=== PATIENT | female | born 1965 | race Two or more races ===

== ENCOUNTER → 2017-11-17 | Outpatient (CLI) | payer OTHER ==
[~2017-11-17] VITALS: Ht 152.4 cm; Wt 68.0 kg
[~2017-11-17] MED LIST: AMBIEN10 MG PO; AMITRIPTYLINE H10 MG; ATARAX25 MG PO; CIPRO500 MG PO; LUNESTA2 MG PO; LUNESTA3 MG PO; ULTRACET PO; URETRON DS1 TAB PO; URIN D.S. TABLE1 TAB PO
== END | disposition home or self-care (01) ==
LOC: PPHC 14:56
DX: J09.X2 Influenza due to identified novel influenza A virus with other respiratory manifestations (principal)

== ENCOUNTER 2020-05-09 12:14 | Outpatient (CLI) | payer OTHER | END 2020-05-09 12:52 | disposition home or self-care (01) | LOC: NUCLEAR 12:14 | PROVIDERS: ATTEND Obstetrics & Gynecology | DX: M81.0 Age-related osteoporosis without current pathological fracture (principal) ==

== ENCOUNTER 2020-05-09 16:12 | Outpatient (CLI) | payer OTHER | END 2020-05-09 16:18 | disposition home or self-care (01) | LOC: MAMO-SONO 16:12 | PROVIDERS: ATTEND Obstetrics & Gynecology | DX: Z12.31 Encounter for screening mammogram for malignant neoplasm of breast (principal); N60.11 Diffuse cystic mastopathy of right breast; N60.12 Diffuse cystic mastopathy of left breast ==

== ENCOUNTER 2021-06-19 08:37 | Outpatient (CLI) | payer OTHER | END 2021-06-19 08:52 | disposition home or self-care (01) | LOC: MAMO-SONO 08:37 | PROVIDERS: ATTEND Obstetrics & Gynecology | DX: R10.2 Pelvic and perineal pain (principal); Z01.411 Encounter for gynecological examination (general) (routine) with abnormal findings; N64.89 Other specified disorders of breast; Z12.31 Encounter for screening mammogram for malignant neoplasm of breast; N64.4 Mastodynia ==

== ENCOUNTER 2021-10-15 08:17 | Outpatient (CLI) | payer OTHER | END 2021-10-15 08:30 | disposition home or self-care (01) | LOC: SONOGRAMA 08:17 | PROVIDERS: ATTEND Internal Medicine Endocrinology, Diabetes & Metabolism | DX: E04.1 Nontoxic single thyroid nodule (principal) ==

== ENCOUNTER 2022-03-17 08:20 | Outpatient (CLI) | payer OTHER | END 2022-03-17 08:26 | disposition home or self-care (01) | LOC: SONOGRAMA 08:20 | DX: R10.11 Right upper quadrant pain (principal) ==

== ENCOUNTER 2022-03-31 09:21 | Outpatient (CLI) | payer OTHER | END 2022-03-31 09:31 | disposition home or self-care (01) | LOC: MRI 09:21 | PROVIDERS: ATTEND Internal Medicine Gastroenterology | DX: K80.20 Calculus of gallbladder without cholecystitis without obstruction (principal); Z93.3 Colostomy status | CPT/HCPCS: 74183 ==

== ENCOUNTER 2022-04-02 08:08 | Outpatient (CLI) | payer OTHER | END 2022-04-02 08:12 | disposition home or self-care (01) | LOC: LAB 08:08 | PROVIDERS: ATTEND Internal Medicine Gastroenterology | DX: R10.30 Lower abdominal pain, unspecified (principal) ==

== ENCOUNTER 2022-07-14 13:10 | Outpatient (CLI) | payer OTHER | END 2022-07-14 13:26 | disposition home or self-care (01) | LOC: MAMO-SONO 13:10 | PROVIDERS: ATTEND Obstetrics & Gynecology | DX: N60.11 Diffuse cystic mastopathy of right breast (principal); N60.12 Diffuse cystic mastopathy of left breast; Z12.31 Encounter for screening mammogram for malignant neoplasm of breast ==

== ENCOUNTER 2022-11-05 13:27 | Outpatient (CLI) | payer OTHER ==
[~2022-11-05 13:27] MED LIST changes: +LEVOTHYROXINE25 MCG PO; +VITAMIN D-40010 MCG PO
== END 2022-11-05 13:29 | disposition home or self-care (01) ==
LOC: NUCLEAR 13:27
PROVIDERS: ATTEND Specialist
DX: M81.0 Age-related osteoporosis without current pathological fracture (principal)

== ENCOUNTER 2023-07-16 09:14 | Outpatient (CLI) | payer OTHER | END 2023-07-16 09:21 | disposition home or self-care (01) | LOC: MAMO-SONO 09:14 | PROVIDERS: ATTEND Obstetrics & Gynecology | DX: R10.9 Unspecified abdominal pain (principal); Z12.31 Encounter for screening mammogram for malignant neoplasm of breast; N60.11 Diffuse cystic mastopathy of right breast; N60.12 Diffuse cystic mastopathy of left breast ==

== ENCOUNTER → 2023-07-16 13:31 | Outpatient (CLI) | payer OTHER ==
[2023-07-16 11:08] LABS: HEMOGLOBIN 15.7 g/dL (12.0-15.00); MEAN CELL VOLUME 87.5 fL (80.00-100.00); MEAN CORPUSCULAR HEMOGLOBIN 29.9 pg (27.00-32.0); MEAN CORPUSCULAR HGB CONC 34.2 g/dl (32.0-36.0); PLATELET COUNT 204 K/uL (150-450); RED BLOOD COUNT 5.25 M/uL (4.00-6.00); RED CELL DISTRIBUTION WIDTH 13.3 % (11.5-14.5)
[2023-07-16 11:24] LABS: PH,URINE 5.5 (5.0-8.0); URINE APPEARANCE Clear; URINE BACTERIA 326.2 uL (0.0-1933); URINE BILIRRUBIN Negative (NEGATIVE); URINE BLOOD Negative; URINE COLOR Yellow; URINE EPITHELIAL CELLS 12.6 uL (0.0-38.8); URINE GLUCOSE Negative (NEGATIVE); URINE LEUKOCYTE Negative; URINE NITRATE Negative; URINE PROTEIN Negative (NEGATIVE); URINE RBC 12.5 uL (0.0-20.8); URINE UROBILINOGEN 0.2 E.U./dl
[2023-07-16 12:14] LABS: ALBUMIN 4.6 gm/dL (3.4-5.0); BILIRUBIN TOTAL 0.63 mg/dL (0.3-1.2); CALCIUM 9.2 mg/dL (8.5-10.1); CHOL HDL RATIO 3.3 (0-5.0); CREATININE SERUM 0.79 mg/dL (0.55-1.02); FREE TRIODOTIRONINE 2.46 pg/ml (2.18-3.98); GFR 74.23; GLOBULINA 3.4 G/DL (2.4-3.5); POTASSIUM 4.01 mEq/L (3.5-5.1); T4 TOTAL 9.58 UG/DL (4.8-13.9); TSH 2.54 uIU/mL (0.358-3.74)
[2023-07-16 13:37] LABS: VITAMIN D3 25 HYDROXY 51.69 ng/ml (30-120)
== END | disposition home or self-care (01) ==
LOC: LAB 09:22
PROVIDERS: ATTEND Obstetrics & Gynecology
DX: N95.1 Menopausal and female climacteric states (principal); E04.1 Nontoxic single thyroid nodule; E55.9 Vitamin D deficiency, unspecified; E78.00 Pure hypercholesterolemia, unspecified; N39.0 Urinary tract infection, site not specified; R19.5 Other fecal abnormalities; R97.8 Other abnormal tumor markers; K76.9 Liver disease, unspecified; E28.39 Other primary ovarian failure; E08.00 Diabetes mellitus due to underlying condition with hyperosmolarity without nonketotic hyperglycemic-hyperosmolar coma (NKHHC)

== ENCOUNTER 2023-07-17 10:10 | Outpatient (CLI) | payer OTHER ==
[2023-07-17 12:29] LABS: ob NEGATIVE (NEGATIVE)
== END 2023-07-17 10:26 | disposition home or self-care (01) ==
LOC: LAB 10:10
PROVIDERS: ATTEND Obstetrics & Gynecology
DX: N95.1 Menopausal and female climacteric states (principal); E04.1 Nontoxic single thyroid nodule; E28.39 Other primary ovarian failure; E55.9 Vitamin D deficiency, unspecified; E78.00 Pure hypercholesterolemia, unspecified; E08.00 Diabetes mellitus due to underlying condition with hyperosmolarity without nonketotic hyperglycemic-hyperosmolar coma (NKHHC); N39.0 Urinary tract infection, site not specified; R19.5 Other fecal abnormalities; R97.8 Other abnormal tumor markers; K76.9 Liver disease, unspecified

== ENCOUNTER 2024-07-19 15:50 | Outpatient (CLI) | payer OTHER | END 2024-07-19 15:53 | disposition home or self-care (01) | LOC: MAMO-SONO 15:50 | PROVIDERS: ATTEND Obstetrics & Gynecology | DX: N60.11 Diffuse cystic mastopathy of right breast (principal); N60.12 Diffuse cystic mastopathy of left breast; Z12.31 Encounter for screening mammogram for malignant neoplasm of breast ==

== ENCOUNTER 2025-04-26 12:55 | Outpatient (CLI) | payer OTHER | END 2025-04-26 12:56 | disposition home or self-care (01) | LOC: NUCLEAR 12:55 | PROVIDERS: ATTEND Specialist | DX: M81.0 Age-related osteoporosis without current pathological fracture (principal) ==

== ENCOUNTER 2025-09-19 11:12 | Outpatient (CLI) | payer OTHER | END 2025-09-19 11:15 | disposition home or self-care (01) | LOC: MAMO-SONO 11:12 | PROVIDERS: ATTEND Obstetrics & Gynecology | DX: N60.11 Diffuse cystic mastopathy of right breast (principal); N60.12 Diffuse cystic mastopathy of left breast; Z12.31 Encounter for screening mammogram for malignant neoplasm of breast ==